=== PATIENT | female | born 1970 | race Caucasian/White ===

== ENCOUNTER 2021-09-15 08:56 | Emergency (ER) | payer BC ==
[~2021-09-15] VITALS: Ht 157.4 cm; Wt 81.6 kg
[2021-09-15] MEDS ORDERED: ZOFRAN4 MG PO (10:21)
[2021-09-15] MEDS ORDERED: ZOFRAN4 MG SL (10:22)
== END 2021-09-15 10:27 | disposition home or self-care (01) ==
LOC: ED 08:56
DX: A08.39 Other viral enteritis (principal)